=== PATIENT | female | born 1960 | race Caucasian/White ===

== ENCOUNTER → 2024-06-16 | Outpatient (CLI) | payer MEDICARE ==
[2024-06-16 12:12] LABS: African American GFR (CKD) 57 (>60 ml/min/1.73 sqM); Blood Urea Nitrogen 15 mg/dL (7-17); Non-African American GFR(CKD) 49 (>60 ml/min/1.73 sqM)
--- NOTE | 2024-06-16 16:31 | CT ---
EXAMINATION TYPE: CT urogram wo/w con CT DLP: 3744 mGycm, Automated exposure control for dose reduction was used. DATE OF EXAM: 06/16/2024 1:14 PM COMPARISON: None CLINICAL INDICATION:Female, 64 years old with history of hematuria TECHNIQUE: Urogram of the abdomen and pelvis was performed before and after the administration of 80 cc of IV co ntrast Isovue 300 contrast. Delayed imaging was performed. Coronal and sagittal reformats were perfor med. One or more CT dose reduction strategies were utilized during this examination. FINDINGS: GENITOURINARY: RIGHT KIDNEY AND URETER: No renal calculi. Moderate right hydroureteronephrosis without obstructing 5 mm calculus within the mid ureter. No renal mass or other lesions. Slightly decreased enhancement of the right kidney compared to the left. Contrast is demonstrated within the right collecting system d uring the course of the exam extending to the 10 minute delay. Therefore evaluation for urethral lesi ons is significantly limited. LEFT KIDNEY AND URETER: Nonobstructive left lower pole 3 calculi with largest measuring up to 7 mm. N o hydronephrosis or hydroureter. Anterior left upper pole 2.6 cm simple cyst. No suspicious enhancing lesions. No urothelial lesions: no filling defect, dilation, stricture or wall thickening. URINARY BLADDER: Not optimally distended. No calculi identified. No gross evidence of mass or other l esions. REPRODUCTIVE: Uterus is surgically absent. ABDOMEN LIVER: . GALLBLADDER AND BILE DUCTS: Unremarkable PANCREAS: Unremarkable. SPLEEN: Unremarkable. ADRENAL GLANDS: Unremarkable. STOMACH AND BOWEL: Scattered colonic diverticulosis without evidence for acute diverticulitis. The ap pendix is unremarkable. No evidence of bowel obstruction. PERITONEUM: No evidence of pneumoperitoneum, free fluid, or adenopathy. VASCULATURE: No aortic aneurysm. Pelvic phleboliths. MUSCULOSKELETAL: No acute osseous abnormalities. Mild levocurvature of the lumbar spine with apex at L3. Multilevel degenerative disc disease with most pronounced at L5-S1. SOFT TISSUE/ABDOMINAL WALL: Small fat filled umbilical hernia. LOWER CHEST: Mild cardiomegaly. No pericardial effusion. Lingular subsegmental atelectasis. Anterior right lower lobe 3 mm pulmonary nodule (series 13, image 5). IMPRESSION: 1. Moderate right hydroureteronephrosis with an obstructing 5 mm calculus within the mid ureter. 2. Nonobstructive left renal calculi with a simple left renal cyst. No suspicious enhancing renal les ions are identified. No definitive left ureteral or urinary bladder abnormality. Poor evaluation of t he right ureter due to lack of contrast excretion into the right collecting system due to obstructive uropathy as described above. 3. Colonic diverticulosis without evidence for acute diverticulitis. 4. Right lower lobe 3 mm pulmonary nodule. In a low risk patient, no follow-up is recommended. In a h igh-risk patient consider optional CT chest in 12 months. [facility], , 06/16/2024 4:29 PM
== END | disposition home or self-care (01) ==
LOC: RADCTMAIN 11:30
PROVIDERS: ATTEND Urology
DX: N13.2 Hydronephrosis with renal and ureteral calculous obstruction (principal); K57.30 Diverticulosis of large intestine without perforation or abscess without bleeding; R91.1 Solitary pulmonary nodule
CPT/HCPCS: 82565; 84520; 74178; 36415; 74400; Q9967

== ENCOUNTER 2024-07-06 08:32 | Day surgery (SDC) | payer MEDICARE ==
--- NOTE | 2024-06-30 11:51 | P.HPIHPCON ---
History of Present Illness H&P Date: 06/30/24 Chief Complaint: Right ureteral stone, left renal stones This is a 64-year-old female with history of gross hematuria, underwent a cystoscopy that showed no abnormality within the bladder. She had a CT urogram done that showed evidence of a 5 mm right sided ureteral stone, and multiple left-sided renal stones. She has failed to pass the stone spontaneously. Discussed with her the option of right-sided ureteroscopy with laser. Of note she also wanted to address her left-sided renal stones at the same setting. Thus option of bilateral ureteroscopy, laser was discussed, aware the risk which includes but not limited to bleeding, infection, injury to the ureter Consent for Procedure: I have explained the operation/procedure to the patient, including the risks, benefits, side effects, alternative therapies (including not receiving the pro posed treatment or service), the likelihood of the patient achieving his/her goals, and potential recuperation problems for the procedure/sedation/analgesia, as well as any blood products, if indicated. I also explained to the patient the risks, benefits and side effects of the alternatives, as well as the risks related to not receiving the proposed procedure, care, treatment, or services. Surgical - Exam - General no distress, moderate pain - Eyes normal ocular movement, no pale - ENT normal nares, normal mucosa - Respiratory normal expansion, normal respiratory effort - Abdomen Abdomen: soft, non tender - Psychiatric oriented to time, oriented to person, oriented to place Assessment and Plan Assessment: OR for cystoscopy, bilateral ureteroscopy, millimeter lithotripsy, stone basketing and stent insertion
[~2024-07-06 08:32] MED LIST: LIDOCAINE 1% (10MG/ML) FOR IV START INTRADERMA PRN; fentaNYL (PF) 50 MCG/ML 2 ML AMP IV PRN
[2024-07-06] MEDS: IV FLUID CONTINUATION 1,000 ML IV ONE ×2 (09:09→11:37)
--- NOTE | 2024-07-06 09:11 | XR ---
EXAMINATION TYPE: XR KUB DATE OF EXAM: 07/06/2024 8:44 AM COMPARISON: Correlation CT 06/16/2024 CLINICAL INDICATION: Female, 64 years old with history of Ureteral Stone Renal Stone N20.1 N20.0, , FINDINGS: Nonobstructive bowel gas pattern. Scattered mild stool. Left-sided pelvic phleboliths. The previous m id right ureteral stone is not as well-seen radiographically. Possible subtle 7 mm calcification left mid abdomen. IMPRESSION: Possible 7 mm left renal stone. The previous mid right ureteral stone is not as well seen radiographi fariha. Left-sided pelvic phleboliths. [facility], , 07/06/2024 9:08 AM
[2024-07-06] MEDS: LACTATED RINGERS 1,000 ML IV SCH (09:20)
[2024-07-06] MEDS: ONDANSETRON 4 MG/2 ML VIAL IVP ONE (09:22)
[2024-07-06] MEDS ORDERED: LIDOCAINE 1% INJ 10MG/ML (20 ML MDV) ONE (10:15)
[2024-07-06] MEDS ORDERED: MIDAZOLAM 2 MG/2 ML VIAL ONE (10:15)
[2024-07-06] MEDS ORDERED: SUCCINYLCHOLINE CHLORIDE 200 MG/10 ML VIAL IV ONE (10:15)
[2024-07-06] MEDS ORDERED: ACETAMINOPHEN IV (For NPO) 1,000 MG/100 ML VIAL ONE (10:15)
[2024-07-06] MEDS ORDERED: PROPOFOL 10 MG/ML 20 ML VIAL IV ONE (10:15)
[2024-07-06] MEDS ORDERED: KETOROLAC 15 MG/ML 1 ML VIAL ONE (10:15)
[2024-07-06 11:24] VITALS: TEMP 97.6
--- NOTE | 2024-07-06 11:30 | P.OP ---
Date of Procedure: 07/06/24 Preoperative Diagnosis: Right ureteral left renal stone Postoperative Diagnosis: Same Procedure(s) Performed: Cystoscopy, bilateral ureteroscopy, laser lithotripsy, stone basketing and stent insertion Implants: 6 Beninese by 22 cm stents in the bilateral ureters Anesthesia: KARLOS Surgeon: Jonas Kidd Estimated Blood Loss (ml): 5 Pathology: other (right Ureteral, left renal stones) Condition: stable Disposition: PACU Indications for Procedure: This is a 64-year-old female with history of gross hematuria, underwent a cystoscopy that showed no abnormality within the bladder. She had a CT urogram done that showed evidence of a 5 mm right sided ureteral stone, and multiple left-sided renal stones. She has failed to pass the stone spontaneously. Discussed with her the option of right-sided ureteroscopy with laser. Of note she also wanted to address her left-sided renal stones at the same setting. Thus option of bilateral ureteroscopy, laser was discussed, aware the risk which includes but not limited to bleeding, infection, injury to the ureter Operative Findings: Right-sided mid ureteral stone, large left-sided lower pole stone Description of Procedure: Patient brought the operating room, general anesthesia was induced. She was prepped and draped in sterile fashion placed in dorsolithotomy incision. Cystoscopy fitted with a 21 Beninese sheath was inserted per urethra, cystoscopy w as performed showed no abnormality within the bladder. Attention was then carried to the right ureteral orifice, semirigid ureteroscope was inserted per urethra and advanced up the right ureteral orifice, the scope was advanced to the level of the mid ureter which at this point a stone was encountered. Using the holmium laser the stone was fragmented, stone fragments were removed using the stone basket. This time the ureteroscope was advanced past the area of the stone and into the proximal ureter, at this point no additional stones were seen point. Pullback ureteroscopy was performed showed no injury to the ureter or any ureteral stones, there was some edema at the site of the stone. As ureteroscope was withdrawn a sensor wire was advanced through. Next a ureteral stent was passed over the wire, the proximal curl was visualized on fluoroscopy and the distal curl was visualized using the cystoscope. Attention was then carried to the left side, the cystoscope was reinserted per urethra and the left ureter orifice was intubated with a sensor wire, the wire was advanced under fluoroscopy into the left kidney. Next an 1113 Beninese access sheath was passed over the wire into the proximal ureter. Next a flexible ureteroscope was inserted through the access sheath, renoscopy was performed which showed a large stone in the lower pole. Of note it was two large stones adjacent to each other. Using the holmium laser the stones were dusted, any sizable fragments were removed using the stone basket. Repeat renoscopy showed no injury to the kidney or any additional stones within the kidney. Pullback ureteroscopy was performed showed no injury to the ureter or any ureteral stones, as a ureteroscope was withdrawn a sensor wire was advanced through. Next a ureteral stent was passed over the wire, the proximal curl was visualized on fluoroscopy and the distal curl was visualized using cystoscope. The bladder was emptied at the end of the case. Patient tolerated procedure was taken to recovery in stable condition. She will follow-up in 1 to 2 weeks for cystoscopy stent removal
--- NOTE | 2024-07-06 11:57 | FL ---
EXAMINATION TYPE: FL guidance operating room DATE OF EXAM: 07/06/2024 FLUOROSCOPY FL TIME 12 SEC DAP .[id number] URETERAL STONE /CYSTOSCOPY LITHOTRIPSY WITH DR. HERNANDEZ 1 image is submitted. [facility], , 07/06/2024 11:54 AM
[2024-07-06 12:01] VITALS: PULSE 64
[2024-07-06 12:18] VITALS: BP 174/94; RESP 18
== END 2024-07-06 12:48 | disposition home or self-care (01) ==
LOC: OR 08:32
PROVIDERS: ATTEND Urology
DX: N20.2 Calculus of kidney with calculus of ureter (principal); I10 Essential (primary) hypertension; E03.9 Hypothyroidism, unspecified; Z79.890 Hormone replacement therapy; Z88.5 Allergy status to narcotic agent
CPT/HCPCS: 82365; 74018; 52356; J0690; J2405